=== PATIENT | male | born 1950 | race Caucasian/White ===

== ENCOUNTER → 2019-08-07 12:26 | Outpatient (CLI) | payer OTHER, MEDICARE ==
--- NOTE | ~2019-08-07 | EC ---
PATIENT:CHRIS BRAGA DATE OF SERVICE: 08/07/19 SEX: M MEDICAL RECORD: [id number] DATE OF : [birth year] [facility] AGE OF PATIENT: 68 ADMISSION DATE: 08/07/19 REFERRING PHYSICIAN: INTERPRETING PHYSICIAN: ALLYSON RUBIO MD ECHOCARDIOGRAM REPORT ECHO CHARGES 4 ECHO COMPLETE Date: 08/07/19 CLINICAL DIAGNOSIS: HTN H/O CVA ECHOCARDIOGRAPHIC MEASUREMENTS (adult normal given) AC root (d.<3.7cm) 3.5 cm LV Septum d (<1.2 cm> 1.6 cm Valve Excursion 2.1 cm LV Septum (systole) 2.2 cm Left Atria (s.<4.0cm> 4.3 cm LVPW d(<1.2cm) 1.7 cm RV (d.<2.3cm) 3.4 cm LVPW (sytole) 2.2 cm LV diastole(<5.6CM) 4.8 cm MV E-F(>70mm/sec) cm LV systole 3.0 cm LVOT Diameter 2.1 cm MV exc.(>10mm) cm Est.ejection fraction (50-75%) % DOPPLER: LVIT cm/sec A 84.0 cm/sec E 60.0 cm/sec LA cm/sec RVSP 16.3 mmHg LVOT 94.0 cm/sec AOP1/2T m/s Asc. Ao 148 cm/sec RVOT 69.0 cm/sec RA cm/sec PA 93.0 cm/sec AV Gradient Peak 8.8 mmHg AV Mean 4.9 mmHg AV Area 2.2 cm MV Gradient Peak 5.0 mmHg MV Mean 1.7 mmHg MV Area cm COMMENTS: OP - HC [employer] Lead: Magdalena BOLIVAR LINDEN Game Attendant: 1 Dr. Rubio TAPE# PACS Pericardial Effusion N DATE OF SERVICE: 08/07/2019 FINDINGS: 1. Left ventricular chamber size is within normal limits. Left ventricular systolic function is normal at 55%. 2. Left atrium is enlarged at 4.3 cm. Right atrium and right ventricle chamber sizes are within normal limits. 3. Valvular structures have normal structure and motion. 4. Doppler interrogation reveals no significant valvular insufficiency or stenosis. ECHOCARDIOGRAM REPORT [id number] CHRIS BRAGA 5. No evidence of pericardial effusion or left ventricular thrombus. TRANSINT:[id number] Voice Confirmation ID: [id number] DOCUMENT ID: [id number] ALLYSON RUBIO MD CC: [id number] DICTATION DATE: 08/07/19 1500 PATIENT ACCOUNTS MANAGER: 08/08/19 0117 DEP CLI 08/07/19 [facility] [address] [id number]
== END | disposition home or self-care (01) ==
LOC: D.HCCECHO 12:26
PROVIDERS: ATTEND Internal Medicine Interventional Cardiology
DX: I10 Essential (primary) hypertension (principal)